=== PATIENT | male | born 1950 | race African-American/Black ===

== ENCOUNTER 2020-04-06 17:29 | Inpatient (IN) | payer MEDICARE, OTHER ==
[2020-04-07] MEDS: Rivaroxaban 10 MG TAB PO SCH (09:08)
[2020-04-07] MEDS: Bupropion 150 MG XL TAB PO SCH (09:08)
[2020-04-07] MEDS: Carvedilol 25 MG TAB PO SCH ×2 (09:09→16:46)
[2020-04-07] MEDS: Aspirin 81 mg Enteric Coated Tablet PO SCH (09:09)
[2020-04-07] MEDS: Amlodipine 5 MG TAB PO SCH (09:09)
[2020-04-07] MEDS: Spironolactone 25 MG TAB PO SCH (09:09)
[2020-04-07] MEDS: Lisinopril 20 MG TAB PO SCH (09:10)
[2020-04-07] MEDS: Simvastatin 40 MG TAB PO SCH (09:10)
[2020-04-07] MEDS ORDERED: Amoxicillin/Potassium Clav 875 MG TAB PO SCH (12:30)
[2020-04-07] MEDS: Amoxicillin/Potassium Clav 875 MG TAB PO SCH (21:19)
[2020-04-08] MEDS: Bupropion 150 MG XL TAB PO SCH (09:03)
[2020-04-08] MEDS: Simvastatin 40 MG TAB PO SCH (09:03)
[2020-04-08] MEDS: Rivaroxaban 10 MG TAB PO SCH (09:03)
[2020-04-08] MEDS: Aspirin 81 mg Enteric Coated Tablet PO SCH (09:03)
[2020-04-08] MEDS: Amoxicillin/Potassium Clav 875 MG TAB PO SCH ×2 (09:04→20:03)
[2020-04-08] MEDS: Spironolactone 25 MG TAB PO SCH (09:04)
[2020-04-08] MEDS: Carvedilol 25 MG TAB PO SCH ×2 (09:04→16:53)
[2020-04-08] MEDS: Amlodipine 5 MG TAB PO SCH (09:05)
[2020-04-08] MEDS: Lisinopril 20 MG TAB PO SCH (09:05)
[2020-04-08] MEDS: Acetaminophen 500 MG TAB PO PRN (18:43)
[2020-04-09] MEDS: Carvedilol 25 MG TAB PO SCH ×2 (07:47→17:03)
[2020-04-09] MEDS: Bupropion 150 MG XL TAB PO SCH (08:29)
[2020-04-09] MEDS: Rivaroxaban 10 MG TAB PO SCH (08:29)
[2020-04-09] MEDS: Amoxicillin/Potassium Clav 875 MG TAB PO SCH ×2 (08:30→21:17)
[2020-04-09] MEDS: Spironolactone 25 MG TAB PO SCH (08:30)
[2020-04-09] MEDS: Amlodipine 5 MG TAB PO SCH (08:30)
[2020-04-09] MEDS: Aspirin 81 mg Enteric Coated Tablet PO SCH (08:31)
[2020-04-09] MEDS: Simvastatin 40 MG TAB PO SCH (08:31)
[2020-04-09] MEDS: Lisinopril 20 MG TAB PO SCH (08:34)
[2020-04-09] MEDS: Acetaminophen 500 MG TAB PO PRN (21:17)
[2020-04-10 04:52] LABS: Hemoglobin 13.6 g/dL (14.0-18.0); Platelet Count 283 thou/uL (130-400)
[2020-04-10] MEDS: Amlodipine 5 MG TAB PO SCH (08:46)
[2020-04-10] MEDS: Simvastatin 40 MG TAB PO SCH (08:46)
[2020-04-10] MEDS: Carvedilol 25 MG TAB PO SCH ×2 (08:46→17:46)
[2020-04-10] MEDS: Bupropion 150 MG XL TAB PO SCH (08:47)
[2020-04-10] MEDS: Spironolactone 25 MG TAB PO SCH (08:47)
[2020-04-10] MEDS: Aspirin 81 mg Enteric Coated Tablet PO SCH (08:47)
[2020-04-10] MEDS: Rivaroxaban 10 MG TAB PO SCH (08:47)
[2020-04-10] MEDS: Lisinopril 20 MG TAB PO SCH (08:48)
[2020-04-11 05:58] VITALS: TEMP 97.8
[2020-04-11] MEDS: Rivaroxaban 10 MG TAB PO SCH (08:02)
[2020-04-11] MEDS: Lisinopril 20 MG TAB PO SCH (08:03)
[2020-04-11] MEDS: Aspirin 81 mg Enteric Coated Tablet PO SCH (08:03)
[2020-04-11] MEDS: Spironolactone 25 MG TAB PO SCH (08:03)
[2020-04-11] MEDS: Amlodipine 5 MG TAB PO SCH ×2 (08:03→08:04)
[2020-04-11] MEDS: Carvedilol 25 MG TAB PO SCH ×2 (08:03→16:11)
[2020-04-11] MEDS: Simvastatin 40 MG TAB PO SCH (08:05)
[2020-04-11] MEDS: Bupropion 150 MG XL TAB PO SCH (08:05)
[2020-04-11 08:06] VITALS: BP 145/80
--- NOTE | 2020-04-13 04:38 | DIS ---
DATE OF ADMISSION: 04/05/2020 DATE OF DISCHARGE: 04/11/2020 ADMIT DIAGNOSES: 1. Weakness. 2. COVID-19 infection. 3. Urinary tract infection. 4. Atrial fibrillation. DISCHARGE DIAGNOSES: 1. Weakness. 2. COVID-19 infection. 3. Urinary tract infection. 4. Atrial fibrillation. 5. Diarrhea - resolved. PROCEDURES: None. CONSULTATIONS: Physical Therapy. LABORATORY DATA: Hemoglobin on 04/10/2020 was 13.6, which is not dissimilar from previous hemoglobin levels. BRIEF SYNOPSIS: Mr. Hung is a 69-year-old male, who presented to [place] for acute rehab. This is following his hospitalization at [facility] in [place]. He was generally weak and felt to be a good candidate for overall rehabilitation. He was evaluated by Physical Therapy, participated well in therapy. He made a reasonable recovery to his baseline and was discharged in stable condition. He did develop some diarrhea, which was thought to be owing to the Augmentin that he had been taking for his urinary tract infection, and the diarrhea seemed to resolve after we discontinued that oral antibiotic. CONDITION ON DISCHARGE: Stable. DISPOSITION: Discharged to home. FOLLOWUP: Follow up with his primary care physician and to obtain further orders for physical therapy if he desires. Job ID: [id number]
== END 2020-04-11 18:50 | disposition home or self-care (01) | DRG 947 ==
LOC: BURMED 17:29
PROVIDERS: ADMIT Family Medicine; ATTEND Family Medicine
PROC: 8E0ZXY6 Isolation (ICD-10-PCS; principal; 2020-04-06)
DX: R53.1 Weakness (principal); U07.1 COVID-19; N39.0 Urinary tract infection, site not specified; K52.1 Toxic gastroenteritis and colitis; I48.91 Unspecified atrial fibrillation; Z79.01 Long term (current) use of anticoagulants; T36.0X5A Adverse effect of penicillins, initial encounter; T36.1X5A Adverse effect of cephalosporins and other beta-lactam antibiotics, initial encounter; Y92.239 Unspecified place in hospital as the place of occurrence of the external cause; I10 Essential (primary) hypertension; Z79.82 Long term (current) use of aspirin; Z87.891 Personal history of nicotine dependence
CPT/HCPCS: 36415; 82565; 85014; 85018; 85049